=== PATIENT | male | born 1945 | race Caucasian/White ===

== ENCOUNTER 2017-03-05 05:49 | Inpatient (IN) | payer MEDICARE, OTHER ==
[2017-02-27 14:56] LABS: WBC (NOT ORDERED) (RFLEX) 0 (0-5)
[2017-02-27 15:11] LABS: ASCORBIC ACID (UR NOT ORDER) NEG (NEG); BILIRUBIN, URINE NEGATIVE (NEG); KETONE, URINE NEGATIVE (NEG); LEUKOCYTE ESTERASE(NOT OR NEG (NEG)
[2017-02-27 17:21] LABS: INTERNATIONAL NORMAL RATI 1.3 UNITS (-); PROTIME (NOT ORD) 15.8 SEC (12.0-14.5)
[2017-02-27 17:32] LABS: A/G RATIO 0.8 (0.7-1.9); ALBUMIN 3.4 G/DL (3.5-5.0); ALKALINE PHOSPHATASE 70 U/L (45-117); BUN (BLOOD UREA NITROGEN) 19 MG/DL (6-23); CALCIUM, SERUM 8.8 MG/DL (8.5-10.4); CHLORIDE, SERUM 105 MMOL/L (96-112); CO2 (CARBON DIOXIDE) 23 MMOL/L (24-34); CREATININE 0.81 MG/DL (0.70-1.30); GFR AFRICAN AMERICAN 105 ML/MIN (>=60); GFR NON AFRICAN AMERICAN 91 ML/MIN (>=60); GLOBULIN 4.2 G/DL (2.5-4.1); GLUCOSE, SERUM 120 MG/DL (60-99); SGOT(AST) 26 U/L (5-40); SGPT(ALT) 27 U/L (5-65); SODIUM, SERUM 137 MMOL/L (135-148); TOTAL BILIRUBIN 0.8 MG/DL (0-1.2); TOTAL PROTEIN 7.6 G/DL (6.0-8.5)
[2017-02-28 10:25] LABS: IRON BINDING CAPACITY 464 MCG/DL (250-450)
[2017-02-28 10:26] LABS: % IRON SAT 17 % (20-50); IRON, SERUM 81 MCG/DL (35-150)
[2017-03-02 10:30] LABS: INDIRECT BILIRUBIN(NOT ORDER) 0.7 MG/DL (0.1-0.9)
[2017-03-02 10:31] LABS: DIRECT BILIRUBIN 0.1 MG/DL (0.0-0.4)
[~2017-03-05] VITALS: Ht 177.8 cm; Wt 145.6 kg
--- NOTE | ~2017-03-05 | OP ---
Record Of Operation [facility] [address] [place]. [address] NAME: DANIELLA HERNÁNDEZ : 49 STATUS : ADM IN PAT#: [id number] AGE: 71 ADM/REG DATE : 03/05/17 MR#: [id number] REPORT SERV DATE: 03/05/17 DICTATED BY: Merari ORONA DATE: 03/05/17 REPORT STATUS : Draft TRANSCRIBED BY: RICCARDO DATE: 03/05/17 DATE OF PROCEDURE: 03/05/2017 PREOPERATIVE DIAGNOSIS: Inability to place Weaver catheter. POSTOPERATIVE DIAGNOSIS: Inability to place Weaver catheter. PROCEDURE: Cystoscopy, urethral dilation, difficult Weaver catheter placement. ANESTHESIA: General. COMPLICATIONS: None. DRAINS: 18-Tajik Councill Weaver catheter. BRIEF HISTORY: Mr. Hernández is a 71-year-old white male, seen on the table prior to CABG by Dr. Rogers. Nurses were unable to place a Weaver catheter and neither was I. He appeared to have a proximal obstruction. I inserted a flexible cystoscope and noted narrowing in his proximal urethra. I was able to dilate him to 20-Tajik and then passed the cystoscope into the bladder, which grossly appeared normal. I placed a ZIPwire through the scope and into the bladder. Over this wire, I placed an 18-Tajik Councill Weaver catheter which entered the bladder and drained clear urine. I placed 10 mL of sterile water in the balloon and removed the wire. I terminated the procedure. I plan to leave the catheter in place and interview the patient postoperatively to assess any of his premorbid voiding function or dysfunction. VICENTE/RICCARDO Merari Orona M.D. / [id number] CC: Gagan Rogers M.D.
--- NOTE | ~2017-03-05 | CN ---
Consultation Report [facility] [address] [place]. [address] NAME: STEVEN HERNÁNDEZ : 49 STATUS : ADM IN PAT#: [id number] AGE: 71 ADM/REG DATE : 03/05/17 MR#: [id number] REPORT SERV DATE: 03/07/17 DICTATED BY: DATE: REPORT STATUS : Draft TRANSCRIBED BY: MODL DATE: 03/06/17 DATE OF CONSULTATION: 03/06/2017 CONSULTATION NOTE Physician requesting consult is Dr. Rogers. REASON FOR CONSULTATION: Postop CABG management. HISTORY OF PRESENT ILLNESS: Mr. Hernández is a pleasant 71-year-old male with a recently discovered three-vessel disease, now status post a four-vessel CABG on 03/05/2017. He has a medical history that is notable for morbid obesity, coronary artery disease, persistent atrial fibrillation on Eliquis, kju-ljtghlp-lrruvhhan diabetes mellitus type 2, DJD, hypertension, and hypothyroidism. He came to Dr. Rogers's attention because of the fact that he was due to have bilateral knee replacement secondary to xkjx-ky-chvb anatomy; however, Dr. Broussard evaluated the patient in the preop setting and a stress test ultimately was positive. That stress test turned into the discovery of three-vessel disease following a cath by Dr. Rodriguez, and the patient was referred to Dr. Rogers, who successfully completed a four-vessel CABG on him yesterday. Specifically, the HERNNADEZ was placed to the mid LAD and then jumped to the distal LAD, and saphenous vein grafts were applied to the obtuse marginal and the PDA. He also underwent a Ferrer maze procedure and seemed to tolerate this relatively well. He appears to be in a junctional rhythm at this point and is not requiring any pacing. Since the operation, he has made very good progress. He is a little volume up, and was approximately 2.3 L up yesterday in the setting of having a surgery. He has received a little bit of IV Lasix this morning and that has not yielded significant diuresis. His dobutamine has fortunately been weaned off, and his cardiac index is 2.1. His pressures are great, and he has not required any pacing as I stated above. He is noticing a little bit of shortness of breath, requiring some high-flow oxygen with oxygen saturations in the low to mid 90s. Other than that, he has no complaints. PAST MEDICAL HISTORY: 1. Three-vessel disease, status post four-vessel CABG. 2. Persistent atrial fibrillation, previously on Eliquis, now status post Maze procedure 03/05/2017. 3. Morbid obesity. 4. Lth-ssrxupm-nhtrqncra diabetes type 2. 5. DJD. 6. Hypertension. 7. Hypothyroidism. FAMILY HISTORY: Father at age 86 due to CHF and [place]. Mother at age 70 due to CHF Consultation Report [facility] [address] [place]. [address] NAME: STEVEN HERNÁNDEZ : 49 STATUS : ADM IN PAT#: [id number] AGE: 71 ADM/REG DATE : 03/05/17 MR#: [id number] REPORT SERV DATE: 03/07/17 DICTATED BY: DATE: REPORT STATUS : Draft TRANSCRIBED BY: MODL DATE: 03/06/17 and [place] as well. SOCIAL HISTORY: The patient is , retired. He denies any alcohol, smoking, or illicit drugs. ALLERGIES: NO KNOWN DRUG ALLERGIES. CURRENT MEDICATIONS: 1. Acetaminophen 650 mg p.o. q.6 hours. 2. Vitamin C. 3. Aspirin 81 mg p.o. daily. 4. Atorvastatin 40 mg p.o. at bedtime. 5. Amiodarone p.o. q.12 hours. 6. Colesevelam 1.87 mg p.o. 7. Famotidine. 8. Levofloxacin. 9. Levothyroxine 300 mcg. 10.Montelukast 10 mg p.o. at bedtime. 11.Multivitamin. 12.Metoprolol tartrate 12.5 mg p.o. q.12 hours. 13.Nitroglycerin sublingual. 14.Senna 2 tabs. 15.Warfarin. 16.Zinc. 17.Prednisone 10 mg. REVIEW OF SYSTEMS: A 10-point review of systems was performed and was otherwise negative. He is endorsing a little bit of chest discomfort at the sternotomy incision site. His legs are without pain. He is endorsing the shortness of breath that I discussed earlier. PHYSICAL EXAMINATION: VITAL SIGNS: Temperature 98.4, pulse 72, blood pressure ranging from 97 to 156 over 56 to 90, saturating 94% on 40% oxygen. He weighs 155 kilos. GENERAL: He is a morbidly obese, male, appearing stated age, who is in no acute distress. HEENT: Normocephalic, atraumatic. EOMI. Mucous membranes are moist. NECK: JVP is elevated to approximately 10 cm of water. He has a subclavian venous catheter. LUNGS: Diminished breath sounds at the bases. CARDIOVASCULAR: Regular rate and rhythm. No murmurs or gallops appreciated. There is a slight rub following surgery. CHEST: A median sternotomy with a wound VAC in place. There are pacing wires exiting as well. EXTREMITIES: These are wrapped and show trace edema. Consultation Report [facility] [id number] [place]. [address] NAME: STEVEN HERNÁNDEZ : 49 STATUS : ADM IN [facility]#: [id number] AGE: 71 ADM/REG DATE : 03/05/17 MR#: [id number] REPORT SERV DATE: 03/07/17 DICTATED BY: DATE: REPORT STATUS : Draft TRANSCRIBED BY: RICCARDO DATE: 03/06/17 NEUROLOGIC: The patient is alert and oriented x4. Cranial nerves 2 through 12 are grossly intact. LAB DATA: ABG, pH 7.32, pCO2 is 37, PO2 of 78, bicarb 18.6. Creatinine 0.7, potassium 4.5. Unremarkable liver function panel. White count with WBC to 19.3, hemoglobin 12.6 and an INR is 1.3. Telemetry: The patient appears to be in a junctional rhythm without evidence of P-waves. He is not pacing at the present time. ASSESSMENT AND PLAN: Steven Hernández is a 71-year-old male status post four-vessel CABG by Dr. Rogers on 03/05/2017. He seems to be doing well and is de-escalating on therapy appropriately. Over the next 24 hours, I think our primary goals would be to encourage diuresis as well as wean and minimize his oxygen requirements. We will work on diuresing him with some IV Bumex today, as the Lasix failed to yield an appropriate response. With respect to the patient's coronary artery disease, he is now back on metoprolol and atorvastatin and aspirin. He was previously on lisinopril and spironolactone, and when appropriate, we will resume these as well. With respect to the patient's atrial fibrillation, he has been initiated on warfarin. This would be the favored strategy for him to be discharged on going forward. We will hold the Eliquis at this time. He also has diabetes, and the hospitalist team has been requested to follow this. The patient also endorses hypothyroidism. I confirmed that he is on 300 mcg of levothyroxine. This is a high dose, but this is what he says he has been on. We will verify that his TSH and T4 are within range by checking these levels tomorrow. [facility] will continue to follow. Thank you very much for this consultation. RONNY/RICCARDO Heath Zazueta IV, MD / [id number] CC: Consultation Report [address] [address] NAME: STEVEN HERNÁNDEZ : 49 STATUS : ADM IN PAT#: [id number] AGE: 71 ADM/REG DATE : 03/05/17 MR#: [id number] REPORT SERV DATE: 03/07/17 DICTATED BY: DATE: REPORT STATUS : Draft TRANSCRIBED BY: RICCARDO DATE: 03/06/17 Gagan Rogers M.D.
--- NOTE | ~2017-03-05 | OP ---
Record Of Operation [facility] [address] [facility] [place]. [address] NAME: DANIELLA HERNÁNDEZ : 49 STATUS : ADM IN PAT#: [id number] AGE: 71 ADM/REG DATE : 03/05/17 MR#: [id number] REPORT SERV DATE: 03/06/17 DICTATED BY: SIDRA ROGERS DATE: 03/05/17 REPORT STATUS : Draft TRANSCRIBED BY: MODMervat DATE: 03/05/17 DATE OF PROCEDURE: 03/05/2017 PREOPERATIVE DIAGNOSES: 1. Coronary artery disease with dyspnea. 2. Persistent atrial fibrillation. 3. Xdl-gkdvigi-yvlurgtjl diabetes mellitus type 2. 4. Degenerative joint disease. 5. Hypertension. 6. Hyperlipidemia. 7. Hypothyroidism. 8. Morbid obesity (BMI greater than 40). POSTOPERATIVE DIAGNOSES: 1. Coronary artery disease with dyspnea. 2. Persistent atrial fibrillation. 3. Qfq-odfxqdi-nbmnxlauv diabetes mellitus type 2. 4. Degenerative joint disease. 5. Hypertension. 6. Hyperlipidemia. 7. Hypothyroidism. 8. Morbid obesity (BMI greater than 40). PROCEDURE PERFORMED: 1. Coronary artery bypass grafting x4, left internal mammary artery sequence to the mid LAD and the distal LAD. Reverse saphenous vein graft placed to the first obtuse marginal, reverse saphenous vein graft placed to the posterior descending artery. 2. Ferrer-Maze IV procedure on cardiopulmonary bypass using radiofrequency ablation and cryoablation. 3. Endoscopic vein harvest, saphenous vein from bilateral legs. 4. Transesophageal echocardiography. HEARING CARE PROFESSIONAL: Litzy Vega and Xavi Christian. ANESTHESIA: General with Dr. Yu and Dr. Harris PIPE LINE WALKER: London Broussard M.D. INDICATIONS: This is a morbidly obese diabetic, 71-year-old gentleman, who has degenerative joint disease and is undergoing evaluation for possible knee replacement. He went for evaluation with his primary care physician, and was found to have atrial fibrillation and was referred to Dr. Broussard. He had a stress test performed and this demonstrated distal inferior and apical ischemia with moderate associated risk. The patient had been placed on Eliquis once atrial fibrillation was confirmed. Echocardiography demonstrated no significant valvular dysfunction and an ejection fraction that was normal at 50% to 55%. He was then referred for cardiac catheterization and this demonstrated significant 3-vessel Record Of Operation [facility] [address] [place]. [address] NAME: DANIELLA HERNÁNDEZ : 49 STATUS : ADM IN PAT#: [id number] AGE: 71 ADM/REG DATE : 03/05/17 MR#: [id number] REPORT SERV DATE: 03/06/17 DICTATED BY: SIDRA ROGERS DATE: 03/05/17 REPORT STATUS : Draft TRANSCRIBED BY: MODL DATE: 03/05/17 coronary disease. We were asked to see the patient for possible coronary artery bypass grafting and Ferrer-Maze IV procedure for atrial fibrillation. We discussed this operation with the patient and his family, and after lengthy discussion of the operations, indication, risks, they wished to proceed. STS predicted risk of mortality between 1% and 2% and morbidity of less than 15% were shared with the family. Preoperative carotid ultrasound studies demonstrated grade 1 disease on the right side. 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 The patient has no history of stroke. FINDINGS AT OPERATION: 1. Cross-clamp time 95 minutes. Total pump time 146 minutes. 2. The LAD was extremely, diffusely, and heavily diseased. An arteriotomy was made in the more distal LAD for bypassing could not be communicated to the mid LAD where a soft spot was found for arteriotomy. A 1 mm probe could not pass a more proximal lesion. Therefore, the CHAPITO was sequenced to both the mid and distal LADs. 3. The mid LAD was a 2 mm heavily diseased vessel. A 2.5 mm HERNANDEZ was anastomosed to it in a wmjl-aq-uwyy fashion with good runoff. 4. The distal LAD was 1.5 mm and heavily diseased. The end of the same 2.5 mm HERNANDEZ was anastomosed to it with good runoff. 5. The first obtuse marginal was 1.75 mm moderately diseased. A 5.5 mm RSVG was anastomosed to it with good runoff. 6. The posterior descending artery was 1.75 mm and heavily diseased. A 5 to 5.5 mm RSVG was anastomosed to it with good runoff. 7. The vein quality was okay. The vein was big and thin. We did have to harvest both leg saphenous vein graft for conduit. On the right side, we harvested that vein distal to the level of the knee, and on the left side we harvested the vein just slightly distal to the knee and slightly up into the thigh. These segments of vein were felt to be good quality above and below. Both these dissected segments were poor quality vein and not acceptable. All grafts did have good Doppler signal at the end of the case. 8. Ferrer-Maze IV procedure was performed on cardiopulmonary bypass. Standard lesion set was performed using both radiofrequency ablation and cryoablation catheters. We used the AtriCure system. We also performed sensing signals of the pulmonary veins prior to Maze and confirmatory quiescence. 9. We did ligate and amputate the left atrial appendage at its base using thoracoscopic stapler and a 60 mm purple staple load. On ELOISA, there was concern about possible clot in the left atrial appendage, so this was done after left atrium was opened and visual confirmation demonstrated absence of clot within the orifice of the left atrial appendage. Once the left atrial appendage was completely excised, it was opened and did not have any clot within it. 10.ELOISA demonstrated good ventricular function overall. There was mild mitral valve insufficiency. Clot in the left atrium appendage was noted and discussed above. 11.The patient is morbid obesity did increase the complexity of the operation. PATHOLOGIC SPECIMENS: Include left atrial appendage. DESCRIPTION OF PROCEDURE: The patient was brought to the operating suite where general anesthesia was induced and airway secured with an endotracheal tube. Lines were placed by Anesthesia. Weaver catheter could not be placed by the operative team and Dr. Coffey Record Of Operation [address] [place]. [address] NAME: DANIELLA HERNÁNDEZ : 49 STATUS : ADM IN [facility]#: [id number] AGE: 71 ADM/REG DATE : 03/05/17 MR#: [id number] REPORT SERV DATE: 03/06/17 DICTATED BY: SIDRA ROGERS DATE: 03/05/17 REPORT STATUS : Draft TRANSCRIBED BY: MODL DATE: 03/05/17 Samira kindly came to the operating suite and did cystoscopy and was able to place a Weaver catheter. ELOISA probe was placed then by Dr. Yu and examination carried out as discussed above. Clot was seen in the left atrial appendage and plans were made to not disturb this side of the heart until left atriotomy was made. The saphenous vein was harvested from bilateral leg using endoscopic technique. Briefly, the vein was cut directly down upon through 2 cm incision placed at the medial aspect of the right knee. Then, using VasoView trocars, we dissected the vessel up in the thigh and it was very large, had many varicosities and was thin. Below the level of the knee, we obtained one segment of vein that we felt was good conduit. Side branch of the vessels were clipped and divided with cautery. Once the vein was dissected from the right lower leg, counter incision made above the ankle where the vein was ligated, divided, and brought through the knee incision. The vein quality was reasonable, although was somewhat large. We had enough vein length for 1 graft. Therefore, an identical cutdown was made at the left greater saphenous vein at the left knee through 2 cm incision medially. Then, using the same technique, segment of this vein was dissected that looked like it would be good content and this was centered about the knee just to the distal thigh and the upper calf. Once adequate length of vein had been dissected, a counter incision was made up in the midthigh and in the mid calf, and the vein was ligated, divided, and brought through the knee incision. The vein quality from the left leg was also somewhat big but good quality. Then, the leg wounds were made hemostatic and closed with absorbable sutures. Midline sternal incision made and the sternum opened with a saw. The left hemithorax was elevated and the endothoracic fascia was incised. Side branch of the CHAPITO were clipped and divided. Once the CHAPITO was completely dissected, the patient was anticoagulated with heparin and chest tube placed in the left pleural cavity. The CHAPITO was clipped and divided distally. There was good flow through the CHAPITO and its pedicle was infiltrated with papaverine. Next, the Aubrey retractor was placed in the pericardium over from innominate vein. The diaphragm was T'd and tacked to sides of the chest wall. Cannulation pursestring sutures were placed. We then cannulated the ascending aorta. We then began the right atrial portion of the Maze procedure. Right atrial appendage lesion was made using AtriCure bipolar clamp. Then, a lateral lesion along the lateral wall of the right atrium was performed with the clamp. A dual stage venous cannula was then placed through the right atrial appendage and secured. We then went on bypass and continued with the right-sided portion of the Maze procedure. We performed superior and inferior vena cava lesion set along with the vertical atriotomy lesion using the AtriCure bipolar clamp. Finally using the AtriCure, cryoprobe lesion in the right atrium going to the tricuspid valve at the 2 o'clock position and a separate lesion surrounding the coronary sinus was performed. These were 3 minute cryoablation lesions. We then placed a retrograde cardioplegia cannula into the coronary sinus. Distal targets were then marked out on the heart as described in the findings. We then performed some of the pulmonary vein isolation and ablation using AtriCure bipolar clamp. Sensing for atrial fibrillation activity in the pulmonary veins was performed and Record Of Operation [facility] [address] [facility] [place]. [address] NAME: DANIELLA HERNÁNDEZ : 49 STATUS : ADM IN PAT#: [id number] AGE: 71 ADM/REG DATE : 03/05/17 MR#: [id number] REPORT SERV DATE: 03/06/17 DICTATED BY: SIDRA ROGERS DATE: 03/05/17 REPORT STATUS : Draft TRANSCRIBED BY: RICCARDO DATE: 03/05/17 then confirmed to be absent after ablations. Prior to performing any of the other left-sided lesions of the Maze procedure, we did arrest the heart because of concern for possible atrial clot seen on echocardiography. Cross-clamp was applied. An initial dose of cold blood cardioplegia solution was given in a combination of antegrade and retrograde fashion, then a retrograde manner following proximal anastomoses. Following the first dose of cardioplegia, we continued with the Maze procedure. The interatrial groove of [place] was dissected and the left atriotomy was made. Sucker was placed in the left atrium. Retractor was placed, and we visualized the mitral valve and the orifice of the left atrium and no clot was seen. Then, the heart was gently retracted towards the surgeon. The ligament of Amadou was divided. We dissected around the confluence of the left pulmonary vein complex and then the AtriCure bipolar clamp was used to create a left PVI lesion. Next, superior and inferior dome lesions were performed using AtriCure bipolar clamp. The lesion was then placed at the base of the left atrial appendage and a connecting lesion between the left PVI and left atrial lesion was performed with the AtriCure bipolar pen. Finally, the last lesion was placed going down to the posterior region of the mitral annulus in the region between P2 and P3. We did go to the anulus using the cryoablation probe. Finally, the heart was again gently retracted towards the surgeon. The left atrial appendage was grasped. It was ligated and amputated at its base using thoracoscopic stapler and 60 mm purple staple load. We then gently retracted the anterior wall of the left atrium and examined inside the left atrial body and no clot was seen. We opened up the left atrial appendage resection and no clot was seen within the left atrial appendage. Next, an LV vent was placed through the right superior pulmonary vein and directed in the left ventricle through the mitral valve and secured. The left atriotomy was then closed in a two-layer fashion, running pledgeted suture of 4-0 Prolene. Another dose of cardioplegia was given and the heart support was placed. We then turned our attention towards the bypasses. The heart was then positioned for the PDA graft. Arteriotomy was made. The vein graft was trimmed and anastomosed to it with 7-0 Prolene. The vein graft was measured to the right side of the ascending aorta where it was divided. We then positioned the heart for the obtuse marginal graft. Another arteriotomy was made, and the vein graft was trimmed and anastomosed to this vessel with 7-0 Prolene. This vein graft was then measured back to the left side of the ascending aorta where it was divided. Both the proximal ends of the vein grafts were anastomosed to 5.5 mm punch aortotomy with 6-0 Prolene. Another dose of cardioplegia was given, and we positioned the heart for the LAD graft. Warming was begun. We first made an arteriotomy in the in the soft portion the LAD, it was felt to be a more distal arteriotomy. Then, using 1 mm probe we could pass the probe distally to the apex but proximally could not pass the calcific obstruction just proximal to the arteriotomy. The LAD was palpated more in a mid vessel and a small arteriotomy was made. I felt we had adequate CHAPITO conduit to do a sequential graft. 1-mm probe would pass through this mid arteriotomy more proximally and distally to this lesion noted earlier. The CHAPITO was then Record Of Operation [address] [place]. [address] NAME: DANIELLA HERNÁNDEZ : 49 STATUS : ADM IN PAT#: [id number] AGE: 71 ADM/REG DATE : 03/05/17 MR#: [id number] REPORT SERV DATE: 03/06/17 DICTATED BY: SIDRA ROGERS DATE: 03/05/17 REPORT STATUS : Draft TRANSCRIBED BY: RICCARDO DATE: 03/05/17 brought out of the left chest. It was measured for sequential grafting and marked. We then opened the CHAPITO graft for the mid vessel anastomosis. A [id number] CHAPITO to LAD anastomosis was then performed with running suture of 8-0 Prolene. Endothoracic fascia was then tacked to the epicardium. Then, the more distal portion of the CHAPITO was measured down to the distal arteriotomy site in the LAD. The CHAPITO was trimmed, opened, and anastomosed to this distal site in an end-to-side fashion with a running suture of 8-0 Prolene. The endothoracic fascia was then tacked to the epicardium at this side also. The patient was then placed in Trendelenburg and final dose of warm blood cardioplegia was given in a retrograde fashion. Ventricular and atrial pacing wires were placed. Following the last dose of cardioplegia and deairing of the aorta, the aortic cross clamp was removed. The distal and proximal anastomoses were inspected and made hemostatic. Doppler demonstrated good flow through the grafts. The heart was allowed to rest on cardiopulmonary bypass and inotropic agents were started. The heart was then paced in AV sequential fashion and ventilation was begun. When the heart demonstrated good contractility, it was allowed to fill and eject. De-airing was monitored with ELOISA. When deairing was completed, the LV vent was removed and these pursestring sutures tied. The patient was then taken out of Trendelenburg and the ascending aortic vent was likewise removed and these pursestring sutures tied and reinforced. The patient was then weaned from cardiopulmonary bypass with inotropic support. The venous cannulas were removed and these pursestring sutures were tied. ELOISA examination demonstrated good ventricular function with mild mitral valve insufficiency. Protamine was administered by Anesthesia, and following a period of hemodynamic stability the aortic cannula was removed and these pursestring sutures tied and reinforced. The patient continued do well and chest irrigated copiously with saline. Meticulous hemostasis was obtained. Hemasorb was placed along the cut edge of the sternum. Once hemostasis was assured, the pericardium was draped over the anterior surface of heart and tacked into position. Doppler demonstrated good flow through the grafts following protamine administration. Then, chest tubes were placed. The sternum was then reapproximated with eight sternal wires. The clavipectoral fascia and linea alba closed with #1 Stratafix. The subcutaneous tissue was closed and skin closed subcuticular fashion. The patient tolerated the procedure well without any complications. Sponge and needle counts were correct. DISPOSITION: The patient was left intubated, sedated, and transported to the intensive care unit in paced AV fashion in a stable condition. ALECIA/RICCARDO Sidra Record Of [place] [id number] [facility] [place]. [address] NAME: DANIELLA HERNÁNDEZ [place] : 49 STATUS : ADM IN [facility]#: [id number] AGE: 71 ADM/REG DATE : 03/05/17 MR#: [id number] REPORT SERV DATE: 03/06/17 DICTATED BY: SIDRA ROGERS DATE: 03/05/17 REPORT STATUS : Draft TRANSCRIBED BY: RICCARDO DATE: 03/05/17 Bonnie Rogres / [id number] CC: Bonnie Ramirez M.D. Robert Berglund, M.D.
--- NOTE | ~2017-03-05 | CN ---
Consultation Report [facility] [address] [place]. [address] NAME: DANIELLA HERNÁNDEZ : 49 STATUS : ADM IN PAT#: [id number] AGE: 71 ADM/REG DATE : 03/05/17 MR#: [id number] REPORT SERV DATE: 03/07/17 DICTATED BY: JR. MALIK WILLIAM JOHN DATE: 03/06/17 REPORT STATUS : Draft TRANSCRIBED BY: RICCARDO DATE: 03/06/17 INTERNAL MEDICINE CONSULTATION DATE OF CONSULTATION: 03/06/[address] Rogers. REASON FOR REQUEST: Glucose management. HISTORY OF PRESENT ILLNESS: This is a 71-year-old male who was under evaluation with total knee arthroplasty, was referred to his primary care physician for preop risk evaluation and was found to be in atrial fibrillation. He was subsequently referred to Dr. Broussard of Cardiology, had a positive stress test, and was placed on Eliquis. Echocardiogram was done and showed significant valvular dysfunction with preserved ejection fraction. He then had a cardiac catheterization, finding 3-vessel coronary artery disease. He was evaluated by Dr. Rogers and underwent a coronary artery bypass graft x4 (the patient was admitted by Dr. Rogers) and underwent coronary artery bypass graft x2 (HERNANDEZ to mid and distal LAD, saphenous vein graft to obtuse marginal 1, saphenous vein graft to posterior descending). Also with a Ferrer-Maze IV procedure with radiofrequency and cryoablation on 03/05. Of note, the anesthesiologist had difficulty placing a Weaver, and a Weaver was placed by Dr. Hogan of Urology. The patient was extubated on 03/05 and is currently beginning a diet and has been on 6 to 8 units of insulin per hour continuously and has no history of diabetes mellitus. His preop hemoglobin A1c without insulin was 5.6. PAST MEDICAL HISTORY: Includes 1. Coronary artery disease. 2. Permanent atrial fibrillation. 3. Noninsulin-dependent diabetes mellitus. 4. Degenerative joint disease. 5. Hypertension. 6. Hyperlipidemia. 7. Hypothyroidism. 8. Obesity with a body mass index of greater than 40. CURRENT MEDICATIONS: Include 1. Bumex 1 mg every 12 hours IV. 2. Amiodarone 400 mg every 12 hours. 3. Coumadin per sliding scale. 4. Deltasone 10 mg orally daily. 5. Aspirin 81 mg daily. 6. Levaquin 750 mg x1. 7. Lipitor 40 mg daily. 8. Metoprolol 12.5 mg every 12 hours. 9. Orazinc 220 mg daily. 10.Pepcid 20 mg twice a day. Consultation Report [place] [id number] [place]. [address] NAME: DANIELLA HERNÁNDEZ : 49 STATUS : ADM IN PAT#: [id number] AGE: 71 ADM/REG DATE : 03/05/17 MR#: [id number] REPORT SERV DATE: 03/07/17 DICTATED BY: JR. MALIK WILLIAM JOHN DATE: 03/06/17 REPORT STATUS : Draft TRANSCRIBED BY: RICCARDO DATE: 03/06/17 11.Senokot two tablets twice a day. 12.Singulair 10 mg daily. 13.Synthroid 100 mcg orally daily. 14.Multivitamin 1 tablet daily. 15.Vitamin C 1000 mg twice a day. 16.WelChol 625 mg twice a day. ALLERGIES: NO KNOWN DRUG ALLERGIES. FAMILY HISTORY: Mother at age 86 of congestive heart failure and myocardial infarction. Father at the age of 70 with same symptoms. SOCIAL HISTORY: Lives in [place] with his . He is a former [employer] worker. He is . Denies alcohol, tobacco, or illicit drugs. REVIEW OF SYSTEMS: Negative in all 12 systems reviewed except does admit to shortness of breath. PHYSICAL EXAMINATION: VITAL SIGNS: Temperature 97.8, blood pressure 130/72, heart rate 65, and respiratory rate 24. GENERAL: The patient is alert, oriented, in no acute distress, sitting in a chair. HEENT: His pupils are equal, round, and reactive to light. Extraocular motion intact. Sclerae anicteric. Oropharynx clear. NECK: Supple without jugular venous distention, thyromegaly, or bruits. LUNGS: Clear to auscultation with symmetrical chest rise. CARDIOVASCULAR: S1, S2 without gallop, murmur, or rub. GI: Abdomen is soft, nontender, bowel sounds present. EXTREMITIES: Show no clubbing, cyanosis, or edema. NEUROLOGIC: Cranial nerves 2 through 12 are intact. Strength and sensation were full and equal throughout. LYMPH NODE SURVEY: Negative in cervical and supraclavicular region. PSYCHIATRIC: Mood and affect were appropriate. CHEST: Showed a right subclavian catheter with 2 chest tubes. GENITOURINARY: He has a Weaver in place. LABORATORY DATA: White count 19.3, hemoglobin 12.6, platelets 136; PT 16.4 with an INR of 1.3. Sodium 144, potassium 4.5, chloride 113, bicarb 22, BUN 20, creatinine 0.7, glucose 97, magnesium 2.3, and calcium 7.6. Arterial blood gas this morning showed a pH of 7.32, pCO2 of 37, and PO2 of 78. Chest x-ray was unremarkable. ASSESSMENT AND PLAN: A 71-year-old male with 1. Wrq-bspfjsy-isslhyzwj diabetes mellitus with significant post CABG insulin resistant. He is currently requiring 6 to 8 units of insulin per hour that he is planning to stay in the CVICU through the night. He was previously only on metformin and had a Consultation Report [address] [address] NAME: DANIELLA HERNÁNDEZ : 49 STATUS : ADM IN [facility]#: [id number] AGE: 71 ADM/REG DATE : 03/05/17 MR#: [id number] REPORT SERV DATE: 03/07/17 DICTATED BY: JR. MALIK WILLIAM JOHN DATE: 03/06/17 REPORT STATUS : Draft TRANSCRIBED BY: RICCARDO DATE: 03/06/17 hemoglobin A1c of 5.6. Given that he has such significant insulin resistance, we will continue his insulin drip through the night and anticipate converting to a subcu insulin tomorrow. 2. Coronary artery disease status post 4-vessel coronary artery bypass graft. 3. Atrial fibrillation status post Maze. 4. Hypertension. 5. Hyperlipidemia. 6. Hypothyroidism. We will continue the Synthroid. He has not had a TSH. We will check that and continue his replacement. 7. Obesity with a body mass index of greater than 40. WLissF/RICCARDO Alfredito Malik Jr, MD / [id number] CC: Gagan Rogers M.D.
--- NOTE | ~2017-03-05 | CN ---
Consultation Report [facility]. [address] NAME: DANIELLA HERNÁNDEZ : 49 STATUS : ADM IN PAT#: [id number] AGE: 71 ADM/REG DATE : 03/05/17 MR#: [id number] REPORT SERV DATE: 03/06/17 DICTATED BY: Merari ORONA DATE: 03/06/17 REPORT STATUS : Draft TRANSCRIBED BY: RICCARDO DATE: 03/06/17 CONSULTATION NOTE DATE OF CONSULTATION: CHIEF COMPLAINT: Recent difficult Weaver catheter placement, possible stricture. HISTORY OF PRESENT ILLNESS: Mr. Hernández is a 71-year-old white male who was on the table for a bypass procedure yesterday and they were unable to place a Weaver catheter. I was called in and flexible cystoscopy showed what I thought was a narrowing in the proximal urethra. I dilated it with the scope and placed an 18-[place] [employer] Weaver over a wire. I waited till today to interview the patient. He denies any previous problems. He does have a mildly diminished force of stream, but has not had surgery or a known stricture in the past. PAST MEDICAL HISTORY: 1. Diabetes mellitus. 2. Hypertension. 3. Morbid obesity. 4. Osteoarthritis. 5. Hypothyroidism. 6. Allergies. PAST SURGICAL HISTORY: Cataract extraction with intraocular lens, CABG as above, right shoulder surgery, cholecystectomy, septoplasty. CURRENT MEDICATIONS: Tylenol, Cordarone, vitamin C, Halfprin, Lipitor, WelChol, Pepcid, Synthroid, Lopressor, Singulair, Theragran, prednisone. ALLERGIES: NO KNOWN DRUG ALLERGIES. REVIEW OF SYSTEMS: A 12-point review of systems negative except as noted above. SOCIAL HISTORY: The patient denies use of alcohol or tobacco. PHYSICAL EXAMINATION: GENERAL: A 71-year-old white male, currently in the ICU. VITAL SIGNS: Afebrile with normal vital signs. HEENT: Normocephalic, atraumatic. No respiratory distress. HEART: Regular rate and rhythm. ABDOMEN: Protuberant, nontender, nondistended. GENITOURINARY: Indwelling Weaver catheter draining clear urine. EXTREMITIES: No peripheral edema noted. Consultation Report [facility] [address] [place]. [address] NAME: DANIELLA HERNÁNDEZ : 49 STATUS : ADM IN PAT#: [id number] AGE: 71 ADM/REG DATE : 03/05/17 MR#: [id number] REPORT SERV DATE: 03/06/17 DICTATED BY: Merari ORONA DATE: 03/06/17 REPORT STATUS : Draft TRANSCRIBED BY: RICCARDO DATE: 03/06/17 PERTINENT LABORATORY DATA: Creatinine 0.7. IMPRESSION: Difficult intraoperative Weaver catheter placement, possible stricture, too little in the way of premorbid symptoms. PLAN: I think that we could probably plan a voiding trial when he is up and about, I rather not do it right away while he has to urinate while lying down and then go from there. risk to have his tube, but it could have been that what I perceived as a stricture was trauma from previous catheter attempts. We will follow him and proceed as indicated once he is up and about on the floor. VICENTE/RICCARDO Merari Orona M.D. / [id number] CC: Gagan Rogers M.D.
[~2017-03-05 05:49] MED LIST: ALEVE220 MG PO; ALLEGRA180 PO; ASAB PO; ASTELIN NAS; COREG3 PO; ELIQUIS 5 MG TAB5 MG PO; FARXIGA10 PO; FISH-EPA1000 MG PO; GLUCOPHAGE1000 MG PO; GLUCOTROL5 PO; IMU PO; IMURAN50 M1 OR; LIPITOR40 PO; MONOKET PO; MULTIVIT/MIN PO; MULTIVITAMI1 PO; P10 PO; P5 PO; PRIN10 PO; SALMON OIL; SALONPAS-HOT EX; SAMOLINIC OR; SINGULAIR1 PO; SPIRO25 PO; SPIRO50 PO; SYN1 PO; SYNTHROID300 MCG PO; TIROSINT100 MCG PO; WELCHOL 625 MG625 MG OR; ZYRTEC ALLGY10 MG PO; [UNRECOGNIZED DRUG - OTHER] XX
[2017-03-05 14:50] LABS: BE (BASE EXCESS) -4.5 MEQ/L (0 +/- 2.5); CARBOXYHEMOGLOBIN 0.5 % (0-3); INSTRUMENT SERIAL # 11843; METHEMOGLOBIN 0.4 % (0-3); MODE SIMV; O2 CONTENT 20.8 VOL% (18-24); PCO2 (CO2 TENSION) 40 MMHG (35-45); PO2 (O2 TENSION) 169 MMHG (79-93); SAMPLE Arterial; TIDAL VOLUME 850 ML; pH 7.34 (7.37-7.43)
[2017-03-05 14:56] LABS: HEMATOCRIT 41.6 % (40.0-51.0); HEMOGLOBIN 14.4 g/dL (13.6-17.8); PLATELET COUNT 157 10/3/uL (150-400)
[2017-03-05 15:03] LABS: INTERNATIONAL NORMAL RATI 1.5 UNITS (-); PARTIAL THROMBO TIME 33.1 SEC (22.5-37.2); PROTIME (NOT ORD) 17.9 SEC (12.0-14.5)
[2017-03-05 15:06] LABS: CHLORIDE, SERUM 116 MMOL/L (96-112); CO2 (CARBON DIOXIDE) 23 MMOL/L (24-34); CREATININE 0.86 MG/DL (0.70-1.30); GFR AFRICAN AMERICAN 103 ML/MIN (>=60); GFR NON AFRICAN AMERICAN 88 ML/MIN (>=60); GLUCOSE, SERUM 104 MG/DL (60-99); POTASSIUM, SERUM 4.7 MMOL/L (3.5-5.3)
[2017-03-05 15:07] LABS: BUN (BLOOD UREA NITROGEN) 15 MG/DL (6-23); CALCIUM, SERUM 7.8 MG/DL (8.5-10.4); SODIUM, SERUM 145 MMOL/L (135-148)
[2017-03-05 21:27] LABS: HEMATOCRIT 38.4 % (40.0-51.0); HEMOGLOBIN 13.1 g/dL (13.6-17.8)
[2017-03-05 21:39] LABS: POTASSIUM, SERUM 4.3 MMOL/L (3.5-5.3)
[2017-03-06 00:38] LABS: BE (BASE EXCESS) -6.8 MEQ/L (0 +/- 2.5); CARBOXYHEMOGLOBIN 0.4 % (0-3); HCO3 (ACTUAL BICARBONATE) 18.6 MEQ/L (23-27); HEMOBLOGIN CONTENT 13.7 G/DL (14-18); INSTRUMENT SERIAL # 11843; METHEMOGLOBIN 0.4 % (0-3); PCO2 (CO2 TENSION) 37 MMHG (35-45); PO2 (O2 TENSION) 78 MMHG (79-93); pH 7.32 (7.37-7.43)
[2017-03-06 00:39] LABS: DEVICE NC; OPERATOR ID 16469; SAMPLE Arterial
[2017-03-06 03:24] LABS: BASOPHILS 0 %; EOSINOPHILS 0 %; HEMATOCRIT 36.8 % (40.0-51.0); HEMOGLOBIN 12.6 g/dL (13.6-17.8); IMMATURE GRANULOCYTES 0.3 %; IMMATURE GRANULOCYTES ABSOLUTE 0.06 10/3/uL (0.0-0.11); LYMPHOCYTES 5.5 %; LYMPHOCYTES ABSOLUTE 1.07 10/3/uL (0.67-4.30); MANUAL DIFF NO %; MEAN CORPUS HGB CONC 34.2 g/dL (32.0-36.0); MEAN CORPUSCULAR HEMOGLOB 32.2 pg (26.0-34.0); MEAN CORPUSCULAR VOLUME 94.1 fL (80-100); MEAN PLATELET VOLUME 9.3 fL (9.2-13.0); MONOCYTES 8.1 %; MONOCYTES ABSOLUTE 1.56 10/3/uL (0.21-1.20); NEUTROPHILS 86.1 %; NEUTROPHILS ABSOLUTE 16.63 10/3/uL (2.02-8.40); PLATELET COUNT 136 10/3/uL (150-400); RBC DISTRIBUTION WIDTH 14.4 % (12.0-16.0); RED CELL COUNT 3.91 10/6/uL (4.7-6.1); WHITE BLOOD CELLS 19.3 10/3/uL (4.5-10.5)
[2017-03-06 03:31] LABS: INTERNATIONAL NORMAL RATI 1.3 UNITS (-); PROTIME (NOT ORD) 16.4 SEC (12.0-14.5)
[2017-03-06 03:35] LABS: CALCIUM, SERUM 7.6 MG/DL (8.5-10.4); CHLORIDE, SERUM 113 MMOL/L (96-112); CO2 (CARBON DIOXIDE) 22 MMOL/L (24-34); GFR AFRICAN AMERICAN 112 ML/MIN (>=60); GFR NON AFRICAN AMERICAN 96 ML/MIN (>=60); GLUCOSE, SERUM 93 MG/DL (60-99); POTASSIUM, SERUM 4.5 MMOL/L (3.5-5.3); SODIUM, SERUM 144 MMOL/L (135-148)
[2017-03-06 03:36] LABS: BUN (BLOOD UREA NITROGEN) 20 MG/DL (6-23)
[2017-03-06 17:26] LABS: HEMATOCRIT 36.2 % (40.0-51.0); HEMOGLOBIN 12.4 g/dL (13.6-17.8)
[2017-03-06 17:39] LABS: BUN (BLOOD UREA NITROGEN) 26 MG/DL (6-23); CALCIUM, SERUM 8.1 MG/DL (8.5-10.4); CHLORIDE, SERUM 105 MMOL/L (96-112); CO2 (CARBON DIOXIDE) 18 MMOL/L (24-34); CREATININE 1.16 MG/DL (0.70-1.30); GFR AFRICAN AMERICAN 74 ML/MIN (>=60); GFR NON AFRICAN AMERICAN 64 ML/MIN (>=60); GLUCOSE, SERUM 138 MG/DL (60-99); POTASSIUM, SERUM 4.3 MMOL/L (3.5-5.3); SODIUM, SERUM 134 MMOL/L (135-148)
[2017-03-07 03:39] LABS: HEMATOCRIT 34.5 % (40.0-51.0); HEMOGLOBIN 12.2 g/dL (13.6-17.8); MEAN CORPUS HGB CONC 35.4 g/dL (32.0-36.0); MEAN CORPUSCULAR HEMOGLOB 32.7 pg (26.0-34.0); MEAN CORPUSCULAR VOLUME 92.5 fL (80-100); MEAN PLATELET VOLUME 9.1 fL (9.2-13.0); PLATELET COUNT 169 10/3/uL (150-400); RBC DISTRIBUTION WIDTH 14.8 % (12.0-16.0); RED CELL COUNT 3.73 10/6/uL (4.7-6.1)
[2017-03-07 03:40] LABS: MANUAL DIFF YES %; WHITE BLOOD CELLS 25.3 10/3/uL (4.5-10.5)
[2017-03-07 03:47] LABS: INTERNATIONAL NORMAL RATI 1.3 UNITS (-); PROTIME (NOT ORD) 15.8 SEC (12.0-14.5)
[2017-03-07 04:02] LABS: BUN (BLOOD UREA NITROGEN) 28 MG/DL (6-23); CALCIUM, SERUM 8.5 MG/DL (8.5-10.4); CHLORIDE, SERUM 104 MMOL/L (96-112); CO2 (CARBON DIOXIDE) 23 MMOL/L (24-34); CREATININE 0.75 MG/DL (0.70-1.30); GFR AFRICAN AMERICAN 108 ML/MIN (>=60); GFR NON AFRICAN AMERICAN 94 ML/MIN (>=60); GLUCOSE, SERUM 92 MG/DL (60-99); POTASSIUM, SERUM 4.3 MMOL/L (3.5-5.3); SODIUM, SERUM 137 MMOL/L (135-148); T4 (THYROXINE) TOTAL 7.6 MCG/DL (4.5-12.0)
[2017-03-07 04:08] LABS: BAND NEUTROPHILS 1 %; LYMPHOCYTES 7 %; LYMPHOCYTES ABSOLUTE (CALC) 1.77 10/3/uL (0.67-4.30); MONOCYTES 14 %; MONOCYTES ABSOLUTE (CALC) 3.54 10/3/uL (0.21-1.20); NEUTROPHILS ABSOLUTE (CALC) 19.99 10/3/uL (2.02-8.40); PLATELET ESTIMATE ADQ (ADEQUATE); RBC MORPHOLOGY NORM (NORMAL); SEGMENTED NEUTROPHIL (0) 78 %; TOTAL NUCLEATED CELLS 100
[2017-03-08 04:14] LABS: HEMATOCRIT 34.4 % (40.0-51.0); HEMOGLOBIN 11.7 g/dL (13.6-17.8); MEAN CORPUSCULAR HEMOGLOB 32.1 pg (26.0-34.0); MEAN CORPUSCULAR VOLUME 94.5 fL (80-100); MEAN PLATELET VOLUME 9.1 fL (9.2-13.0); PLATELET COUNT 172 10/3/uL (150-400); RBC DISTRIBUTION WIDTH 15.2 % (12.0-16.0); RED CELL COUNT 3.64 10/6/uL (4.7-6.1); WHITE BLOOD CELLS 22.1 10/3/uL (4.5-10.5)
[2017-03-08 04:15] LABS: MANUAL DIFF YES %
[2017-03-08 04:24] LABS: INTERNATIONAL NORMAL RATI 1.3 UNITS (-); PROTIME (NOT ORD) 16.2 SEC (12.0-14.5)
[2017-03-08 04:30] LABS: BUN (BLOOD UREA NITROGEN) 29 MG/DL (6-23); CALCIUM, SERUM 8.6 MG/DL (8.5-10.4); CHLORIDE, SERUM 100 MMOL/L (96-112); CREATININE 0.91 MG/DL (0.70-1.30); GFR AFRICAN AMERICAN 99 ML/MIN (>=60); GFR NON AFRICAN AMERICAN 86 ML/MIN (>=60); POTASSIUM, SERUM 4.4 MMOL/L (3.5-5.3); SODIUM, SERUM 133 MMOL/L (135-148)
[2017-03-08 04:34] LABS: CO2 (CARBON DIOXIDE) 28 MMOL/L (24-34); GLUCOSE, SERUM 168 MG/DL (60-99)
[2017-03-08 04:42] LABS: BAND NEUTROPHILS 9 %; LYMPHOCYTES 6 %; LYMPHOCYTES ABSOLUTE (CALC) 1.33 10/3/uL (0.67-4.30); MONOCYTES 11 %; MONOCYTES ABSOLUTE (CALC) 2.43 10/3/uL (0.21-1.20); NEUTROPHILS ABSOLUTE (CALC) 18.34 10/3/uL (2.02-8.40); PLATELET ESTIMATE ADQ (ADEQUATE); RBC MORPHOLOGY NORM (NORMAL); SEGMENTED NEUTROPHIL (0) 74 %; TOTAL NUCLEATED CELLS 100
[2017-03-09 05:42] LABS: INTERNATIONAL NORMAL RATI 1.5 UNITS (-); PROTIME (NOT ORD) 17.9 SEC (12.0-14.5)
[2017-03-09 05:48] LABS: BUN (BLOOD UREA NITROGEN) 27 MG/DL (6-23); CALCIUM, SERUM 8.4 MG/DL (8.5-10.4); CHLORIDE, SERUM 102 MMOL/L (96-112); CO2 (CARBON DIOXIDE) 27 MMOL/L (24-34); CREATININE 0.63 MG/DL (0.70-1.30); GFR AFRICAN AMERICAN 117 ML/MIN (>=60); GFR NON AFRICAN AMERICAN 101 ML/MIN (>=60); SODIUM, SERUM 137 MMOL/L (135-148)
[2017-03-09 05:50] LABS: GLUCOSE, SERUM 113 MG/DL (60-99)
[2017-03-09 06:06] LABS: BASOPHILS 0.1 %; BASOPHILS ABSOLUTE 0.01 10/3/uL (0.0-0.16); EOSINOPHILS 1.8 %; HEMATOCRIT 32.4 % (40.0-51.0); IMMATURE GRANULOCYTES 0.4 %; IMMATURE GRANULOCYTES ABSOLUTE 0.06 10/3/uL (0.0-0.11); LYMPHOCYTES 10.5 %; LYMPHOCYTES ABSOLUTE 1.74 10/3/uL (0.67-4.30); MEAN CORPUSCULAR VOLUME 94.2 fL (80-100); MEAN PLATELET VOLUME 9.2 fL (9.2-13.0); MONOCYTES 12.2 %; MONOCYTES ABSOLUTE 2.02 10/3/uL (0.21-1.20); NEUTROPHILS ABSOLUTE 12.44 10/3/uL (2.02-8.40); PLATELET COUNT 148 10/3/uL (150-400); RBC DISTRIBUTION WIDTH 15.6 % (12.0-16.0); RED CELL COUNT 3.44 10/6/uL (4.7-6.1); WHITE BLOOD CELLS 16.6 10/3/uL (4.5-10.5)
[2017-03-09 06:07] LABS: MANUAL DIFF NO %
[2017-03-10 05:33] LABS: BASOPHILS 0.1 %; BASOPHILS ABSOLUTE 0.01 10/3/uL (0.0-0.16); EOSINOPHILS 3.3 %; EOSINOPHILS ABSOLUTE 0.55 10/3/uL (0.0-0.53); HEMATOCRIT 33.6 % (40.0-51.0); HEMOGLOBIN 11.4 g/dL (13.6-17.8); IMMATURE GRANULOCYTES 0.5 %; IMMATURE GRANULOCYTES ABSOLUTE 0.09 10/3/uL (0.0-0.11); LYMPHOCYTES 11.9 %; LYMPHOCYTES ABSOLUTE 2.01 10/3/uL (0.67-4.30); MEAN CORPUS HGB CONC 33.9 g/dL (32.0-36.0); MEAN CORPUSCULAR HEMOGLOB 31.8 pg (26.0-34.0); MEAN CORPUSCULAR VOLUME 93.6 fL (80-100); MEAN PLATELET VOLUME 8.9 fL (9.2-13.0); MONOCYTES 13.6 %; NEUTROPHILS 70.6 %; NEUTROPHILS ABSOLUTE 11.92 10/3/uL (2.02-8.40); PLATELET COUNT 166 10/3/uL (150-400); RBC DISTRIBUTION WIDTH 15.2 % (12.0-16.0); RED CELL COUNT 3.59 10/6/uL (4.7-6.1); WHITE BLOOD CELLS 16.9 10/3/uL (4.5-10.5)
[2017-03-10 05:36] LABS: MANUAL DIFF NO %
[2017-03-10 05:41] LABS: INTERNATIONAL NORMAL RATI 1.7 UNITS (-)
[2017-03-10 05:48] LABS: BUN (BLOOD UREA NITROGEN) 24 MG/DL (6-23); CALCIUM, SERUM 8.2 MG/DL (8.5-10.4); CHLORIDE, SERUM 98 MMOL/L (96-112); CO2 (CARBON DIOXIDE) 29 MMOL/L (24-34); CREATININE 0.68 MG/DL (0.70-1.30); GFR AFRICAN AMERICAN 113 ML/MIN (>=60); GFR NON AFRICAN AMERICAN 97 ML/MIN (>=60); GLUCOSE, SERUM 121 MG/DL (60-99); POTASSIUM, SERUM 3.8 MMOL/L (3.5-5.3); SODIUM, SERUM 134 MMOL/L (135-148)
[2017-03-11 05:25] LABS: INTERNATIONAL NORMAL RATI 2.2 UNITS (-)
[2017-03-11 05:27] LABS: PROTIME (NOT ORD) 24.5 SEC (12.0-14.5)
[2017-03-12 05:28] LABS: INTERNATIONAL NORMAL RATI 1.8 UNITS (-); PROTIME (NOT ORD) 21.1 SEC (12.0-14.5)
[2017-03-13 04:30] LABS: BASOPHILS 0.2 %; BASOPHILS ABSOLUTE 0.03 10/3/uL (0.0-0.16); EOSINOPHILS ABSOLUTE 0.74 10/3/uL (0.0-0.53); HEMATOCRIT 35.7 % (40.0-51.0); HEMOGLOBIN 12.3 g/dL (13.6-17.8); IMMATURE GRANULOCYTES 0.6 %; IMMATURE GRANULOCYTES ABSOLUTE 0.09 10/3/uL (0.0-0.11); LYMPHOCYTES 15.3 %; LYMPHOCYTES ABSOLUTE 2.26 10/3/uL (0.67-4.30); MEAN CORPUS HGB CONC 34.5 g/dL (32.0-36.0); MEAN PLATELET VOLUME 8.6 fL (9.2-13.0); MONOCYTES 10.3 %; MONOCYTES ABSOLUTE 1.51 10/3/uL (0.21-1.20); NEUTROPHILS 68.6 %; PLATELET COUNT 204 10/3/uL (150-400); RBC DISTRIBUTION WIDTH 15.1 % (12.0-16.0); RED CELL COUNT 3.84 10/6/uL (4.7-6.1); WHITE BLOOD CELLS 14.7 10/3/uL (4.5-10.5)
[2017-03-13 04:35] LABS: MANUAL DIFF NO %
[2017-03-13 04:37] LABS: PROTIME (NOT ORD) 22.4 SEC (12.0-14.5)
[2017-03-13 04:45] LABS: CALCIUM, SERUM 8.8 MG/DL (8.5-10.4); CHLORIDE, SERUM 99 MMOL/L (96-112); CO2 (CARBON DIOXIDE) 27 MMOL/L (24-34); CREATININE 0.59 MG/DL (0.70-1.30); GFR AFRICAN AMERICAN 120 ML/MIN (>=60); GFR NON AFRICAN AMERICAN 103 ML/MIN (>=60); POTASSIUM, SERUM 3.9 MMOL/L (3.5-5.3); SODIUM, SERUM 134 MMOL/L (135-148)
[2017-03-13 04:47] LABS: BUN (BLOOD UREA NITROGEN) 17 MG/DL (6-23); GLUCOSE, SERUM 96 MG/DL (60-99)
[2017-03-13] MEDS ORDERED: NORCO1 TA1 PO (10:13)
[2017-03-13] MEDS ORDERED: KLOR-CON M2020 MEQ PO (10:13)
[2017-03-13] MEDS ORDERED: C2 PO (10:14)
[2017-03-13] MEDS ORDERED: L40 PO (10:15)
[2017-03-13] MEDS ORDERED: LOP25 PO (10:16)
[2017-03-13] MEDS ORDERED: LIPITOR40 PO (13:41)
== END 2017-03-13 15:08 | disposition home or self-care (01) | DRG 229 ==
LOC: ENRESERVDT → ENRESERVTM → ENRESERV → SDC/OF 05:49 → 5NO 05:49 → CVICU 05:49 → 5NO 03-08 10:04
PROVIDERS: Internal Medicine; Nurse Practitioner Adult Health; Nurse Practitioner Family; Thoracic Surgery (Cardiothoracic Vascular Surgery)
PROC: 0210099 Bypass Coronary Artery, One Artery from Left Internal Mammary with Autologous Venous Tissue, Open Approach (ICD-10-PCS; 2017-03-05)
PROC: 06BQ4ZZ Excision of Left Saphenous Vein, Percutaneous Endoscopic Approach (ICD-10-PCS; 2017-03-05)
PROC: 06BP4ZZ Excision of Right Saphenous Vein, Percutaneous Endoscopic Approach (ICD-10-PCS; 2017-03-05)
PROC: 5A1221Z Performance of Cardiac Output, Continuous (ICD-10-PCS; 2017-03-05)
PROC: B246ZZ4 Ultrasonography of Right and Left Heart, Transesophageal (ICD-10-PCS; 2017-03-05)
PROC: 0T7D8ZZ Dilation of Urethra, Via Natural or Artificial Opening Endoscopic (ICD-10-PCS; 2017-03-05)
PROC: 0T9B80Z Drainage of Bladder with Drainage Device, Via Natural or Artificial Opening Endoscopic (ICD-10-PCS; 2017-03-05)
PROC: 0212093 Bypass Coronary Artery, Three Arteries from Coronary Artery with Autologous Venous Tissue, Open Approach (ICD-10-PCS; principal; 2017-03-05 07:00)
PROC: 02580ZZ Destruction of Conduction Mechanism, Open Approach (ICD-10-PCS; 2017-03-05 07:00)
DX: I25.10 Atherosclerotic heart disease of native coronary artery without angina pectoris (principal); Z68.41 Body mass index [BMI] 40.0-44.9, adult; J90 Pleural effusion, not elsewhere classified; I48.1 Persistent atrial fibrillation; E11.9 Type 2 diabetes mellitus without complications; M19.90 Unspecified osteoarthritis, unspecified site; I10 Essential (primary) hypertension; E78.5 Hyperlipidemia, unspecified; N35.9 Urethral stricture, unspecified; E03.9 Hypothyroidism, unspecified; E66.01 Morbid (severe) obesity due to excess calories; Z79.01 Long term (current) use of anticoagulants; Z79.82 Long term (current) use of aspirin; Z79.899 Other long term (current) drug therapy; Z82.49 Family history of ischemic heart disease and other diseases of the circulatory system; Z79.52 Long term (current) use of systemic steroids; Z79.84 Long term (current) use of oral hypoglycemic drugs
CPT/HCPCS: 36415; 71010; 71020; 80048; 80053; 80076; 81001; 82248; 82330; 82803; 82805; 82947; 82962; 83036; 83540; 83550; 83735; 84132; 84295; 84436; 84443; 85014; 85018; 85025; 85049; 85347; 85610; 85730; 86850; 86900; 86901; 86920; 87641; 88304; 93005; 93312; 93320; 93325; 94002; 94640; 94660; 94770; 97110-GP; 97116-GP; 97162-GP; 97166-GO; 97530-GP; A9270-GY; C1713; C1769; C1894; C2618; G8978-CL-GP; G8979-CK-GP; G8987-CK-GO; G8988-CJ-GO; J0330; J0690; J1644; J1940; J1956; J2150; J2250; J2370; J2405; J2440; J2720; J2795; J2930; J3010; J3475; J3480; P9045; P9047